=== PATIENT | male | born 1995 | race Caucasian/White ===

== ENCOUNTER 2020-11-26 20:28 | Emergency (ER) | payer BC ==
--- NOTE | 2020-11-26 21:48 | EDM.PDOC ---
ED HPI GENERAL MEDICAL PROBLEM - General Chief Complaint: Syncope Stated Complaint: DIZZY/FEELS LIKE HES GOING TO FAINT Time Seen by Provider: 11/26/20 21:11 Source of Information: Reports: Patient History Limitations: Reports: No Limitations - History of Present Illness INITIAL COMMENTS - FREE TEXT/NARRATIVE: Pt states starting three days ago he had an episode after eating lunch where he became extremely dizzy and had a near-syncopal episode. Pt denies any pain at that time but after the episode had a headache, L shoulder blade pain, and felt groggy. Pt states since then he has been having multiple near-syncopal episodes a day. States that most recent episode occurred about an hour and a half prior to arrival in the emergency department. Denies chest pain or SOB but is still having L shoulder pain. Denies any recent fever, chills, nausea, vomiting or diarrhea. He denies any shortness of breath associated with the syncopal episode. Denies any diaphoresis associated with the syncopal episode. He denies any reflux type symptoms. States that he is otherwise healthy and does not take any prescription medications. Left Shoulder Pain Score (Numeric/FACES): 4 - Related Data Allergies Allergy/AdvReac Type Severity Reaction Status Date / Time No Known Allergies Allergy Verified 11/26/20 20:43 Home Meds: Home Meds . [No Known Home Meds] 11/26/20 [History] Past Medical History Genitourinary History: Reports: Other (See Below) Other Genitourinary History: pyloric stenosis - Infectious Disease History Infectious Disease History: Reports: None - Past Surgical History Musculoskeletal Surgical History: Reports: Shoulder Surgery Other Musculoskeletal Surgeries/Procedures:: R shoulder surgery Social & Family History - Tobacco Use Tobacco Use Status *Q: Never Tobacco User Second Hand Smoke Exposure: No - Caffeine Use Caffeine Use: Reports: Coffee - Recreational Drug Use Recreational Drug Use: No ED ROS GENERAL - Review of Systems Review Of Systems: Comprehensive ROS is negative, except as noted in HPI. - Physical Exam Exam: See Below Exam Limited By: No Limitations General Appearance: Alert, WD/WN, No Apparent Distress Ears: Normal External Exam, Hearing Grossly Normal Nose: Normal Inspection Throat/Mouth: Normal Inspection, Normal Lips, Normal Voice, No Airway Compromise Head Exam: Atraumatic, Normocephalic Neck: Normal Inspection, Supple Respiratory/Chest: No Respiratory Distress, Lungs Clear, Normal Breath Sounds, No Accessory Muscle Use, Chest Non-Tender Cardiovascular: Normal Peripheral Pulses, Regular Rate, Rhythm, No Edema, No Murmur GI/Abdominal: Normal Bowel Sounds, Soft, Non-Tender, No Distention (Male) Exam: Deferred Rectal (Males) Exam: Deferred Neuro Exam (Abbreviated): Alert, Oriented, Normal Cognition Back Exam: Normal Inspection Extremities: Normal Inspection Psychiatric: Normal Affect, Normal Mood Skin Exam: Warm, Dry, Intact, Normal Color, No Rash #1 Interpretation EKG Date: 11/26/20 Time: 20:47 Rhythm: NSR Rate (Beats/Min): 76 [place]: Normal P-Wave: Present QRS: Normal ST-T: Normal QT: Normal Comparison: NA - No Prior EKG EKG Interpretation Comments: Per Dr. Grossman interpretation: NSR; no AE; no AVB; no ischemic changes; normal transition; no LAD/RAD; no LVH/RVH; no IV CDs; QTC within normal limits Course - Vital Signs Text/Narrative:: As stated above, presents with what he calls near fainting episodes over the past few days. Upon exam, the patient is hemodynamically stable. And physical exam is essentially unremarkable. He denies any symptoms at present. I have ordered labs to include CBC, CMP, magnesium level, troponin, and a TSH level. We will also obtain an EKG and a portable chest x-ray. Last Recorded V/S: Last Vital Signs Temp 98.5 F 11/26/20 20:38 Pulse 86 11/26/20 20:38 Resp 18 11/26/20 20:38 BP 154/87 H 11/26/20 20:38 Pulse Ox 99 11/26/20 20:38 - Orders/Labs/Meds Orders: Active Orders 24 hr Category Date Time Status Chest 1V Frontal [CR] Stat Exams 11/26/20 21:41 Taken Labs: Laboratory Tests 11/26/20 11/26/20 Range/Units 21:52 21:52 WBC 8.88 (4.23-9.07) K/mm3 RBC 4.92 (4.63-6.08) M/mm3 Hgb 14.6 (13.7-17.5) gm/dl Hct 42.5 (40.1-51.0) % MCV 86.4 (79.0-92.2) fl MCH 29.7 (25.7-32.2) pg MCHC 34.4 (32.2-35.5) g/dl RDW Std Deviation 39.2 (35.1-43.9) fL Plt Count 242 (163-337) K/mm3 MPV 10.8 (9.4-12.3) fl Neut % (Auto) 58.8 (34.0-67.9) % Lymph % (Auto) 32.1 (21.8-53.1) % [place] % (Auto) 6.9 (5.3-12.2) % Eos % (Auto) 1.4 (0.8-7.0) Baso % (Auto) 0.7 (0.1-1.2) % Neut # (Auto) 5.23 (1.78-5.38) K/mm3 Lymph # (Auto) 2.85 (1.32-3.57) K/mm3 [place] # (Auto) 0.61 (0.30-0.82) K/mm3 Eos # (Auto) 0.12 (0.04-0.54) K/mm3 Baso # (Auto) 0.06 (0.01-0.08) K/mm3 Sodium 140 (136-145) mEq/L Potassium 3.7 (3.5-5.1) mEq/L Chloride 106 (98-107) mEq/L Carbon Dioxide 25 (21-32) mEq/L Anion Gap 12.7 (5-15) BUN 17 (7-18) mg/dL Creatinine 1.1 (0.7-1.3) mg/dL Est Cr Clr Drug Dosing 145.22 mL/min Estimated GFR (MDRD) > 60 (>60) mL/min BUN/Creatinine Ratio 15.5 (14-18) Glucose 100 H (70-99) mg/dL Calcium 8.5 (8.5-10.1) mg/dL Magnesium 2.0 (1.8-2.4) mg/dL Total Bilirubin 0.3 (0.2-1.0) mg/dL AST 17 (15-37) U/L ALT 29 (16-63) U/L Alkaline Phosphatase 65 (46-116) U/L Troponin I < 0.017 (0.00-0.056) ng/mL Total Protein 7.2 (6.4-8.2) g/dl Albumin 4.0 (3.4-5.0) g/dl Globulin 3.2 gm/dL Albumin/Globulin Ratio 1.3 (1-2) TSH 3rd Generation 1.999 (0.358-3.74) uIU/mL - Re-Assessments/Exams Free Text/Narrative Re-Assessment/Exam: 11/26/20 22:10 Nothing acute is appreciated on portable chest x-ray. Formal radiologist report is pending. 11/26/20 22:41 Hematology and chemistry is completely unremarkable except for glucose of 100. TSH is also within normal limits. Patient will be placed on a 48-hour Holter monitor and will follow up with his primary care provider, Dr. Keshawn Polo at [facility] in [place] early next week. Departure - Departure Time of Disposition: 22:43 Disposition: Home, Self-Care 01 Condition: Good Clinical Impression: Syncope, near - Discharge Information Instructions: Near-Syncope, [id number] Referrals: Keshawn Polo MD [Primary Care Provider] - Forms: ED Department Discharge Additional Instructions: You were seen in the emergency department today evaluated after numerous near fainting episodes. Numerous studies were completed in the emergency department which included a chest x-ray, EKG and lab testing. These were all completely normal. You will be placed on a 48-hour Holter monitor as discussed. You will need to follow-up with your primary care provider early next week for the results of this test. Should your condition worsen or change, do not hesitate returning to the emergency department. Sepsis Event Note (ED) - Evaluation Sepsis Screening Result: No Definite Risk - Focused Exam Vital Signs: Vital Signs Temp Pulse Resp BP Pulse Ox 11/26/20 20:38 98.5 F 86 18 154/87 H 99 - My Orders Last 24 Hours: My Active Orders 11/26/20 21:41 Chest 1V Frontal [CR] Stat - Assessment/Plan Last 24 Hours: My Active Orders 11/26/20 21:41 Chest 1V Frontal [CR] Stat
--- NOTE | 2020-11-27 09:54 | CR ---
Chest: Frontal view of the chest was obtained. Comparison: No prior chest x-ray is available, prior chest CT of 04/20/19 is available. Heart size and mediastinum are within normal limits. Lungs are clear with no acute parenchymal change. Bony structure shows nothing acute. Impression: 1. Nothing acute is seen on frontal chest x-ray. Diagnostic code #1
== END 2020-11-26 23:36 | disposition home or self-care (01) ==
LOC: JD.ED 20:28
DX: R55 Syncope and collapse (principal)
CPT/HCPCS: 36415; 71045; 71045-26; 80053; 83735; 84443; 84484; 85025; 93005; 93010; 93225; 93226; 99283; 99284-25